=== PATIENT | female | born 1960 | race Caucasian/White ===

== ENCOUNTER 2023-08-08 10:05 | Day surgery (SDC) | payer OTHER, MEDICARE ==
[2023-08-01 14:01] VITALS: BMI 33.7
[2023-08-08 12:25] VITALS: TEMP 97.1
[2023-08-08 12:27] VITALS: BP 104/52; PULSE 72; RESP 19
== END 2023-08-08 12:35 | disposition home or self-care (01) ==
LOC: FASU-ENDO 10:05
PROVIDERS: ATTEND Internal Medicine Gastroenterology
PROC: 0DJD8ZZ Inspection of Lower Intestinal Tract, Via Natural or Artificial Opening Endoscopic (ICD-10-PCS; principal; 2023-08-08 11:46)
DX: Z12.11 Encounter for screening for malignant neoplasm of colon (principal); K64.1 Second degree hemorrhoids; K64.8 Other hemorrhoids; K57.30 Diverticulosis of large intestine without perforation or abscess without bleeding